=== PATIENT | female | born 1990 | race Hispanic/Latino ===

== ENCOUNTER 2016-12-22 00:51 | Emergency (ER) | payer BC ==
[2016-12-22 01:01] VITALS: BP 132/72; PULSE 74; RESP 18; TEMP 98.9; O2SAT 99
[2016-12-22] MEDS ORDERED: Oxycodone/Acetaminophen 5/325 mg Tab PO STA (01:07)
[2016-12-22] MEDS ORDERED: Silver Sulfadiazine 1% CREAM (50 gm) TOP STA (01:08)
[2016-12-22] MEDS ORDERED: Oxycodone/Acetaminophen 5/325 mg Tab ONE (01:12)
[2016-12-22] MEDS ORDERED: Silver Sulfadiazine 1% Cream (20 gm) TOP STA (01:14)
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
== END 2016-12-22 02:17 | disposition home or self-care (01) ==
LOC: H.ER 00:51
DX: T23.202A Burn of second degree of left hand, unspecified site, initial encounter (principal); X19.XXXA Contact with other heat and hot substances, initial encounter; Y92.89 Other specified places as the place of occurrence of the external cause